=== PATIENT | female | born 1980 | race Caucasian/White ===

== ENCOUNTER 2018-04-02 07:00 | Inpatient (IN) | payer OTHER ==
[~2018-04-02] VITALS: Ht 167.6 cm; Wt 77.1 kg
[~2018-04-02 07:00] MED LIST: SYNTHROID100 MCG PO; [UNRECOGNIZED DRUG - OTHER] PO
--- NOTE | 2018-04-02 13:10 | Operative Report ---
Operative/Inv Procedure Report Surgery Date: 04/02/18 Name of Procedure: repeat L/T C/S Pre-Operative Diagnosis: pts desire Post-Operative Diagnosis: same Estimated Blood Loss: 300 Surgeon/Research Aide: Katie CAMPA,Jessenia España MD Anesthesia: block Urine Output: 200 Drains: eaton Complications: none Condition: good Operative/Procedure Note Note: The patient was taken to the operating room for repeat low transverse section a Eaton catheter was placed in the bladder heart rates are 1 44 bpm in the left lower quadrant the abdomen was prepped the patient was placed in the left lateral tilt. The patient was grounded after checking for the adequacy of anesthesia a Pfannenstiel incision was made over the old incision. Incision was carried down sharply to the fascia which was incised in the midline sharply the incision was carried out laterally sharply. The fascia was then divided from the underlying rectus muscles in the superior and inferior direction sharply the rectus muscle bundles were divided in the midline sharply the peritoneum was entered well above the dome of the bladder in the midline sharply. The uterus was checked for any adhesions and there were none a bladder flap was created on the lower uterine segment. The lower uterine segment was entered in the midline bluntly and the incision carried out laterally bluntly. The was delivered from the vertex position through clear amniotic fluid the shreya-pharynx was bulb suction and the cord was doubly clamped and cut the was handed to the pediatric attendant. The placenta was manually extracted the interior of the uterus was wiped clean with wet laps the uterus was externalized. The uterine incision was closed in 2 layers the first a running locking stitch and the second an imbricating over the first 0 Polysorb sutures were. The abdominal/peritoneal cavity was irrigated copiously the uterus was returned to its normal anatomical position the incision was once again checked for hemostasis which was judged to be excellent the parietal peritoneum was reapproximated in simple running fashion of 0 Polysorb suture. The fascia was reapproximated with 2 simple running 0 Polysorb sutures overlapping in the midline. Marisel's fascia was reapproximated with a 3-0 undyed Polysorb suture in a simple running fashion the skin was closed with mariann. Sponge instrument and needle counts were correct 3 estimated blood loss was 300 mL there were no complications the only drains left at the end of the procedure was a Eaton catheter to the bladder.
[2018-04-03 07:47] LABS: ABSOLUTE BASOPHIL COUNT 0 /CUMM (0.0-0.2); ABSOLUTE EOSINOPHIL COUNT 0 /CUMM (0.0-0.7); ABSOLUTE LYMPH COUNT 1.4 /CUMM (1.2-3.4); ABSOLUTE MONOCYTE COUNT 0.8 /CUMM (0.10-0.60)
[2018-04-03 08:21] LABS: ABSOLUTE GRANULOCYTE CT 5.7 /CUMM (1.4-6.5); BASOPHIL % 0.2 % (0.0-2.0); EOSINOPHIL % 0.2 % (0-5); GRANULOCYTE % 71.5 % (42.2-75.2); MEAN CORPUSCULAR HGB 30.3 PG (27.0-31.0); MEAN CORPUSCULAR VOLUME 91.8 FL (81.0-99.0); MEAN PLATELET VOLUME 9.2 FL (7.4-10.4); PLATELET COUNT 157 /CUMM (130-400); RBC DISTRIBUTION WIDTH 13.6 % (11.5-14.5); RED BLOOD CELL CT 3.51 /CUMM (4.20-5.40)
[2018-04-03 08:28] LABS: HEMATOCRIT 32.2 % (37-47)
--- NOTE | 2018-04-03 16:36 | PN- OBGYN ---
Surgical Brief Attending Note Brief Attending Note: pt feeling well. pain well controlled. amb / void / filipe po. +bf and bottle. afeb, v/ss nad abd soft nt nd ff inc c/d/i/ w/ clips bon min lochia ext nt no ed a/p pod 1 s/p rpt c/s, doing well -cont amb -pain mgmt -routine pop care
[2018-04-04 03:38] VITALS: BP 119/67
--- NOTE | 2018-04-04 09:56 | PN- OBGYN ---
Surgical Brief Attending Note Brief Attending Note: POD#2 pt is resting in bed, no complaints, tolerate diet, void without difficulties, flatus(+) PE: VSS CV RRR Lungs CTA B/L Abdomen: soft, mild tender at incision site, uterus firm, fundus below umbilicus. incision mariann in place, D/C/I. lochia mild Ext: DCT (-) A/P: 37 yo, s/p RLTCS,POD#2 1. encourage ambulation 2. pain management as needed 3. pt dsires to have circumcision for the baby, R/B/A of elective circumcision d /w pt in detail, she understand. all questions answered, informed consent obtained. 4.RT PP care
--- NOTE | 2018-04-05 09:08 | PN- OBGYN ---
Surgical Brief Attending Note Brief Attending Note: POD 3 Patient found ambulating. Pain relieved with Percocet and Motrin. Tolerating POs, no N&V. +void. +flatus, no BM yet. Not nursing "yet". Ready to go home. afebrile VS normal. Lips - pink and moist Neck - supple Breasts - not engorged Cor - RRR Abd - soft, NT Fundus - firm, NT, at umb. Incision - C/D/I, mariann in place Perineum - dry Extr - min. edema bilat., benign A: stable s/p C/S P: home today, Rx Percocet and Motrin for pain F/U CBC in 2-3d F/U in office 2 weeks for incision check discharge instructions reviewed
[2018-04-05] MEDS ORDERED: IBUPROFEN800 M1 PO (10:02)
--- NOTE | 2018-04-05 12:02 | Surgical Discharge Summary ---
History of Present Illness Medical History Isolation History: Standard Psychosocial History What is Your Primary Language? [place] Hospital Course Allergies: Coded Allergies: No Known Allergies (04/01/18) Discharge Instructions Medications at Discharge Discharge Medications: Continue taking these medications: Levothyroxine Sodium (Synthroid) 100 MCG TABLET 1 Tablet ORAL Every night Pnv72/Iron,Carb&Glu/FA/Dss/Dha (Citranatal 90 Dha Combo Pack) 90 MG IRON-1 MG-50 MG-300 MG COMBO..PKG 1 Tablet ORAL DAILY Start taking the following new medications: Ibuprofen (Ibuprofen) 800 MG TABLET 800 Milligram ORAL EVERY SIX HOURS NEEDED as needed for UTERINE CRAMPING not to exceed 3 per day Qty = 30 Refills = 2 Comments: Last Taken:04/05/18 Time:0543
== END 2018-04-05 12:01 | DRG 766 ==
LOC: GNO 10:03
PROVIDERS: Obstetrics & Gynecology
PROC: 10D00Z1 Extraction of Products of Conception, Low, Open Approach (ICD-10-PCS; principal; 2018-04-02)
DX: O34.211 Maternal care for low transverse scar from previous cesarean delivery (principal); N85.8 Other specified noninflammatory disorders of uterus; Z3A.39 39 weeks gestation of pregnancy; Z37.0 Single live birth
CPT/HCPCS: GNOS; 87086; J0131; J0690; J1885; J7120